=== PATIENT | female | born 1985 ===

== ENCOUNTER 2018-04-04 22:37 | Emergency (ER) | payer SELFPAY ==
[~2018-04-04] VITALS: Ht 172.7 cm; Wt 49.9 kg
[2018-04-04 22:45] VITALS: BP 99/56
--- NOTE | 2018-04-04 22:45 | NUR ---
ED Nurse Note: pt brought in by [facility] c/o OD unknown substance, per EMS report, pt was in the parking garage and called 911 for more altered, per statement pt was at a [employer] and couldn't stay awake. pt is unable to stay awake, nonverbal, resisting to care. ERMD aware pt's condition. VSS, will cont monitor.
[2018-04-04] MEDS ORDERED: LORazepam Inj 2mg/ml 1ml IM ONE (23:00)
[2018-04-04 23:25] LABS: HEMOGLOBIN 15.6 G/DL (12.0-16.0); MEAN CORPUSCULAR VOLUME 92 FL (80-99); PLATELET COUNT 327 K/UL (150-450); RED BLOOD COUNT 4.78 M/UL (4.20-5.40); RED CELL DISTRIBUTION WIDTH 11.3 % (11.6-14.8)
[2018-04-04 23:38] LABS: ANION GAP 10 mmol/L (5-15); BLOOD UREA NITROGEN 14 mg/dL (7-18); CALCIUM 9.4 MG/DL (8.5-10.1); CARBON DIOXIDE 26 MMOL/L (21-32); CHLORIDE 104 MMOL/L (98-107); CREATININE 0.7 MG/DL (0.55-1.30); POTASSIUM 4.6 MMOL/L (3.5-5.1); SODIUM 140 MMOL/L (136-145)
[2018-04-04 23:42] LABS: ALANINE AMINOTRANSFERASE 26 U/L (12-78); ALBUMIN 4.4 G/DL (3.4-5.0); ALKALINE PHOSPHATASE 70 U/L (46-116); ASPARTATE AMINO TRANSFERASE 23 U/L (15-37); BILIRUBIN,TOTAL 0.5 MG/DL (0.2-1.0)
--- NOTE | 2018-04-04 23:57 | NUR ---
ED Nurse Note: pt now awake, AA&ox4, gcs=15, states she does not recall what happened or where she was, ERMD notified regarding pt, pt refused to give urine sample, called pt's and left message.
--- NOTE | 2018-04-05 | NUR ---
ED Nurse Note: pt is looking for her bag, pt's states he has the bag and cellphone.
[2018-04-05 00:20] VITALS: BP 121/67
--- NOTE | 2018-04-05 00:20 | NUR ---
ED Nurse Note: pt cleared to be d/c per ERMD, pt discharge instruction/aftercare instruction provided, pt advised to follow up with pcp or return to ED, pt at the bedside with clean dry cloths, pt VSS, resp even and unlabored on RA, airway intact, ambulatory w/ steady gait, iv d/c and dressing applied, wristband removed, pt verbalized understanding and agrees with plan, pt was accompanied by .
--- NOTE | 2018-04-05 00:30 | NUR ---
ED Nurse Note: noted pt's ID on bed, called pt's garrett for pickle pumper and left voicemail, ID given to security.
--- NOTE | 2018-04-05 03:56 | Emergency Room Report ---
History of Present Illness General Chief Complaint: Alcohol Intoxication Source: EMS Present Illness HPI 32-year-old female presents ED for evaluation. Brought in by EMS for possible overdose. Per EMS patient reportedly use alcohol and possibly some drugs tonight. Upon arrival patient is lethargic and not answering questions. No signs of trauma. No nausea or vomiting. No signs of distress. No other aggravating relieving factors. Denies any other associated symptoms Allergies: Coded Allergies: UNABLE TO ASSESS (Unverified , 04/04/18) Pt was drunk Patient History Past Medical History: none Past Surgical History: none Pertinent Family History: none Social History: Reports: alcohol use, drug use; Denies: smoking Now: No Immunizations: UTD Reviewed Nursing Documentation: PMH: Agreed; PSxH: Agreed Nursing Documentation-PMH Past Medical History Deferred: Pt Cognitively Impaired Review of Systems All Other Systems: limited Physical Exam Vital Signs Date Time Temp Pulse Resp B/P (MAP) Pulse Ox O2 Delivery O2 Flow Rate FiO2 04/04/18 22:38 97.9 82 18 106/58 99 Room Air Sp02 EP Interpretation: reviewed, normal General Appearance: no apparent distress, lethargic Head: normocephalic Eyes: bilateral eye normal inspection, bilateral eye PERRL ENT: normal ENT inspection Neck: normal inspection Respiratory: chest non-tender, lungs clear, normal breath sounds, speaking full sentences Cardiovascular #1: regular rate, rhythm, no edema Gastrointestinal: normal bowel sounds, non tender, soft, non-distended, no guarding, no rebound Rectal: deferred Genitourinary: no CVA tenderness Musculoskeletal: normal inspection Neurologic: other - lethargic Psychiatric: other - lethargic Skin: normal inspection Lymphatic: normal inspection Medical Decision Making Diagnostic Impression: Primary Impression: Altered level of consciousness ER Course Hospital Course 32-year-old F presents to ED with altered mental status. possible overdose Differential diagnoses include: Psychosis, EtOH, drug abuse Clinical course patient placed on stretcher. On monitoring tech. After initial history and physical ordered labs, IV fluids Labs reviewed-electrolytes okay, no leukocytosis, hemoglobin/hematocrit stable, ETOH negative Patient became more awake, refusing to provide urine Now awake alert oriented 3. Vital stable. at bedside to take patient home. Patient refusing to provide any additional history about what happened tonight we'll provide detox referrals i. I feel this is a highly complex case requiring extensive working including EKG/Rhythm strip, Xray/CT/US, Blood/urine lab work, repeat exams while in ED, and administration of strong opiates/narcotics for pain control, admission to hospital or close patient follow up. Diagnosis - ALOC Stable and discharged to home. Followup with PMD. Return to ED if symptoms recur or worsen Labs Test 04/04/18 22:00 White Blood Count 14.0 K/UL (4.8-10.8) Red Blood Count 4.78 M/UL (4.20-5.40) Hemoglobin 15.6 G/DL (12.0-16.0) Hematocrit 44.0 % (37.0-47.0) Mean Corpuscular Volume 92 FL (80-99) Mean Corpuscular Hemoglobin 32.6 PG (27.0-31.0) Mean Corpuscular Hemoglobin Concent 35.4 G/DL (32.0-36.0) Red Cell Distribution Width 11.3 % (11.6-14.8) Platelet Count 327 K/UL (150-450) Mean Platelet Volume 6.8 FL (6.5-10.1) Neutrophils (%) (Auto) % (45.0-75.0) Lymphocytes (%) (Auto) % (20.0-45.0) Monocytes (%) (Auto) % (1.0-10.0) Eosinophils (%) (Auto) % (0.0-3.0) Basophils (%) (Auto) % (0.0-2.0) Sodium Level 140 MMOL/L (136-145) Potassium Level 4.6 MMOL/L (3.5-5.1) Chloride Level 104 MMOL/L (98-107) Carbon Dioxide Level 26 MMOL/L (21-32) Anion Gap 10 mmol/L (5-15) Blood Urea Nitrogen 14 mg/dL (7-18) Creatinine 0.7 MG/DL (0.55-1.30) Estimat Glomerular Filtration Rate > 60 mL/min (>60) Glucose Level 117 MG/DL (74-106) Calcium Level 9.4 MG/DL (8.5-10.1) Total Bilirubin 0.5 MG/DL (0.2-1.0) Aspartate Amino Transf (AST/SGOT) 23 U/L (15-37) Alanine Aminotransferase (ALT/SGPT) 26 U/L (12-78) Alkaline Phosphatase 70 U/L (46-116) Total Protein 8.8 G/DL (6.4-8.2) Albumin 4.4 G/DL (3.4-5.0) Globulin 4.4 g/dL Albumin/Globulin Ratio 1.0 (1.0-2.7) Salicylates Level 1.0 ug/mL (2.8-20) Acetaminophen Level < 2 MCG/ML (10-30) Serum Alcohol < 3 mg/dL Last Vital Signs Date Time Temp Pulse Resp B/P (MAP) Pulse Ox O2 Delivery O2 Flow Rate FiO2 04/05/18 00:20 97.4 67 16 121/67 100 Room Air Status: improved Disposition: HOME, SELF-CARE Condition: Stable [facility]: Substance Use Disorder Ki Goldstein MD Apr 05, 2018 03:56
== END 2018-04-05 00:20 | disposition home or self-care (01) ==
LOC: EDBD 22:37 → EMR 23:00
DX: R41.82 Altered mental status, unspecified (principal)
CPT/HCPCS: 36415; 80053; 85025; 96361; 96372; 99284; G0480; 80329